=== PATIENT | female | born 1985 | race Caucasian/White ===

== ENCOUNTER 2016-06-14 19:15 | Emergency (ER) | payer MEDICAID, OTHER ==
[2016-06-14 19:37] VITALS: BP 145/89
--- OUTSIDE RECORDS SUMMARY | 2016-06-14 20:25 | XMS REPORT | Continuity of Care Document ---
:1985 Author Organization [facility] ([facility]) Address [address] [place] [address] Phone [phone] Care Team Providers Name Role Phone Daphne Gaitan Primary Care Provider [phone] Source Comments This disclosure is being made pursuant to the Care Everywhere program, applicable federal and state laws, and may not contain all informaitonavailable regarding this patient.[facility] ([facility]) Active Allergies and Adverse Reactions Not on File Current Medications Not on file Active Problems Not on file Social History Tobacco Use Types Packs/Day Years Used Date Never Assessed Plan of Care Health Maintenance Due Date Last Done Comments Hepatitis B Vaccine (1 of 3 - Primary Series) 1985 Tdap Vaccine 1994 Lipid Disorder Screening 2001 MMR Vaccine 2001 Td Vaccine 2001 Varicella Vaccine (1 of 2 - Adult - No Evidence of 2001 Immunity) Cervical Cancer Screening 2013 Influenza Vaccine: Seasonal (#1) 11/14/2015 Results from Last 3 Months Not on file
--- OUTSIDE RECORDS SUMMARY | 2016-06-14 20:25 | XMS REPORT | CCD ---
:1985 Author Name BHAVNA CEJA Address [address] [facility] Unavailable [place], [place] [id number] Care Team Providers Name Role Phone HEATHER CHANEY Attending Physician Unavailable HEATHER CHANEY Er Physician 1 Unavailable Vital Signs Unknown or Not Available. Allergies Allergy Code Allergy Type Reaction Status PENICILLIN 14382 Drug allergy Active Procedures Unknown or Not Available. History of Immunizations Immunization Code Date DTP 1989 DTP 10/29/1988 DTP 1983 OPV 1985 OPV 1989 OPV 10/29/1988 MMR 10/29/1988 no vaccine administered 998 1985 Problems Unknown or Not Available. Results Unknown or Not Available. Active Medications Unknown or Not Available. Medications Administered During Visit Unknown or Not Available. Encounters Encounter Diagnosis Diagnosis Code Start Date Radiculopathy, cervical region [id number] 07/17/2015 Social History Smoking Status Code Start Date End Date Current every day smoker [id number] Patient Decision Aids Unknown or Not Available. Discharge Instructions You were admitted to [facility] on 07/17/2015 14:46 with a principal diagnosis of Radiculopathy, cervical region You were discharged from [facility] on 07/17/2015 15:22 Should you have any questions prior to discharge, please contact a member of your healthcare team. If you have left the hospital and have any questions, please contact your primary care physician. Chief Complaint and Reason For Visit Chief Complaint Date of Onset LT SHOULDER PAIN Function Status Unknown or Not Available. Plan of Care Unknown or Not Available. Referral/Transition of Care Unknown or Not Available.
--- NOTE | 2016-06-14 20:30 | ERNOTE ---
Upper Extremity HPI - Narrative Date of Service: 06/14/16 - General Extremities Pain Location: hand: right Time Seen by Provider: 06/14/16 20:06 Source: patient Exam Limitations: no limitations - Immun/Allergies/Home Medications Immunizations: IMMUNIZATION HX Immunizations Up to Date Yes History of Influenza Vaccine No Allergies/Adverse Reactions: Allergies Allergy/AdvReac Type Severity Reaction Status Date / Time Penicillins Allergy Mild Nausea Verified 06/14/16 19:37 Home Medications: HOME MEDICATIONS NK [No Home Medication] 06/14/16 [Last Taken Unknown] - History of Present Illness Narrative: Pt says she was at home a "couple of hours ago" and noted a mild swelling and tenderness to dorsum of her right hand. she denies any known trauma . Says she has never had this before. She is right handed. Occurred: this evening Location of Incident: home Severity: mild Method of Injury: Reports: no apparent injury Other Injuries: Reports: none Review of Systems - Review of Systems Constitutional: Present: See HPI Musculoskeletal: Present: See HPI. Absent: joint pain, joint swelling Skin: Present: change in color - mild swelling and bruising to dorsum of r. hand Neurological: Present: no symptoms reported Psych: Present: no symptoms reported All Other Systems: All systems neg except as marked - Patient's Past Medical History Patient History - Cardiac/Respiratory: Asthma Patient History - Cancer: No Hx of Cancer Patient History - Surgical Procedures: Back Surgery, Tubal Ligation, T & A, ENT - Social History Living Situations: home Abuse History: No History of abuse Psych History: No pertinent hx Smoking Status: Current every day smoker Patient requests Smoking Cessation Consult: No Initiate information on Smoking Cessation: No Alcohol Use: none Drug Use: none - Immunizations Immunizations Up to Date: Yes History of Influenza Vaccine: No Physical Exam - Physical Exam General Appearance: Present: alert, no apparent distress Extremity Exam: Present: normal except - - mild bluish discoloration and and mild swelling and tenderness to area overlying dorsum of middle third of 4th and 5th R. metacarpals. No bony deformity and no pain with axial loading. r. hand and wrist nuero - circ exam = negative for any abnormalities. She has good ROM of right hand and fingers and wrist. , normal range of motion Neurological Exam: Present: alert, oriented, normal mood/affect, no motor/ sensory deficits Skin Exam: Present: other - mild local bruising to area of R. hand tenderness ED Progress - Vital Signs Vital Signs: Vital Signs 06/14/16 19:32 Temperature 36.5 C Pulse Rate 84 Respiratory 18 Rate Blood Pressure 145/89 O2 Sat by Pulse 100 Oximetry - X-Ray X-Ray #1 X-Ray: hand Interpretation: Reviewed by me - Patient Patient Name: DENISSE PEREZ X-ray Comments: Patient Patient Name:DENISSE PEREZ Date: 1985 Sex: F Order Number: [id number] Unique Exam ID: [id number] Exam Requested: [id number] - Hand Minimum 3 Views RT * Date Scheduled: Study Priority: Requesting Service: Requesting Physician: Sandro Dan Reason for Exam: Radiological Report : Exam Date: 06/14/2016 20:17 Ordering Physician: Sandro Dan History: Hand injury. Additional history provided by the technologist: Swollen hand x2 hours. Pain posteriorly. Technique: Right hand series (3 views) Comparison:None. Findings: No acute fracture or dislocation. Alignment is anatomic. Mineralization is normal. No degenerative change. No destructive osseous lesions. Joint spaces are maintained. Soft tissues are unremarkable. Impression: No acute osseous findings. Electronically signed by Kirby Mora D.O.. Approved by: Approval Date: 06-14-2016 Approval Time: 08:32 PM - Progress/Reassessment Chief Complaint: Hand Injury/Pain Plan - Plan Plan: discharge home with ice and ibuprofen and time. F/U with PCP if worse or not improving. When RN went in to sign out pt. she has eloped. Departure Clinical Impression: Traumatic ecchymosis of right hand Qualifiers: Encounter type: initial encounter Qualified Code(s): S60.221A - Contusion of right hand, initial encounter - Departure Disposition: Home self-care Condition: Good Instructions: Hand Contusion, [id number]
== END 2016-06-14 21:09 | disposition left against medical advice (07) ==
LOC: ER 19:15
DX: S60.221A Contusion of right hand, initial encounter (principal)